=== PATIENT | male | born 1980 | race Caucasian/White ===

== ENCOUNTER 2019-11-02 20:22 | Inpatient (IN) | payer BC, SELFPAY ==
[2019-11-02] VITALS (8 sets, daily range): BP systolic 123–155; BP diastolic 80–99; PULSE 82–96; RESP 14–22; TEMP 36.6–36.9; O2SAT 95–99; BMI 30.2
--- NOTE | ~2019-11-02 | XR_ITS ---
EXAMINATION: XR chest 2V DATE: 11/02/2019 21:43 INDICATION: Chest pain TECHNIQUE: PA and lateral views of the chest are obtained. COMPARISON: 04/03/2005 FINDINGS: The lungs are free of acute opacities. There is no pleural effusion or pneumothorax. The ca rdiomediastinal silhouette is normal. The visualized bones and soft tissues are unremarkable. Contras t from earlier CT scan partially opacifies the urinary tract. IMPRESSION: 1. No acute cardiopulmonary abnormality. Reviewed, dictated and finalized at location A.
--- NOTE | ~2019-11-02 | XR_ITS ---
XR abdomen NG/feed tube insert DATE: 11/03/2019 03:50 INDICATION: NG tube placement TECHNIQUE: Portable AP view on 11/03/2019 at 0350 hours COMPARISON: 11/02/2019 CT abdomen pelvis FINDINGS: An NG tube is present in the proximal stomach, the proximal port extending approximately 8 cm distal to the diaphragmatic hiatus, the tip of the tube overlying the gastric fundus beneath the l eft leaf of the diaphragm. There are numerous gas distended small bowel segments. IMPRESSION: NG tube in proximal stomach Gas distended small bowel segments consistent with partial small bowel obstruction Reviewed, dictated and finalized at Location [facility]. Reviewed, dictated and finalized at location A. IMPRESSION: NG tube in proximal stomach Gas distended small bowel segments consistent with partial small bowel obstruct ion
--- NOTE | ~2019-11-02 | CT_ITS ---
EXAMINATION: CT abdomen pelvis w con DATE: 11/02/2019 21:29 INDICATION: Epigastric abdominal pain. History of pancreatitis. TECHNIQUE: Computed tomography (CT) of the abdomen and pelvis was performed with 100 cc Omnipaque 350 intravenous contrast. Automated exposure control and iterative reconstruction technique were employe d. Exam dose: 734.27 mGy-cm total exam DLP. COMPARISON: 02/25/2006 CT abdomen FINDINGS: Normal heart size. No pericardial or pleural effusion. Lung bases are clear. The liver, gallbladder, bile ducts, pancreas, pancreatic duct, spleen, adrenal glands and kidneys are unremarkable. No urinary tract calculus or hydroureteronephrosis. Normal caliber of the abdominal aorta. No intraperitoneal or retroperitoneal or pelvic mass lesion or adenopathy or ascites. Status post colectomy; history of ulcerative colitis. There is a small bowel anastomosis in the right lower quadrant subtle immediately proximal to the anastomosis is small bowel dilatation up to 3.3 cm diameter and fecal-like contents as well as proximal small bowel air-fluid levels. Bilateral sacroiliitis, which is likely secondary to or associated with the clinical history of ulcer ative colitis. L5 limbus vertebra. There is patchy sclerosis of T8, T9 and T10, possibly related to subacute or old fractures. IMPRESSION: Partial small bowel obstruction at the small bowel anastomosis in the right lower quadra nt Reviewed, dictated and finalized at [facility]. Reviewed, dictated and finalized at location A. IMPRESSION: Partial small bowel obstruction at the small bowel anastomosis in the right lower quadrant
--- NOTE | ~2019-11-02 | XR_ITS ---
XR abdomen obstructive series DATE: 11/03/2019 06:27 INDICATION: Small bowel obstruction TECHNIQUE: Portable supine and upright AP views of the abdomen COMPARISON: 11/02/2019 CT abdomen pelvis FINDINGS: There are mildly dilated gas distended small bowel segments. There is an anastomosis in the right lower quadrant, with suggestion of small bowel obstruction at this site. There is sclerosis at the sacroiliac joints suggesting sacroiliitis associated with known ulcerative colitis. Radiopaque contrast material is noted in the urinary bladder. A nasogastric tube is present in the gastric fundus. IMPRESSION: Partial small bowel obstruction at the anastomosis in the right lower quadrant Bilateral sacral hiatus likely secondary or associated with ulcerative colitis NG tube in gastric fundus Reviewed, dictated and finalized at [facility]. Reviewed, dictated and finalized at location A. IMPRESSION: Partial small bowel obstruction at the anastomosis in the right low er quadrant Bilateral sacral hiatus likely secondary or associated with ulcerative colitis NG tube in gastric fundus
--- NOTE | 2019-11-02 20:30 | ECG_ITS ---
Measurements Intervals Alex Rate: 87 P: 62 VA: 154 QRS: 69 QRSD: 97 T: 25 QT: 336 QTc: 405 Interpretive Statements SINUS RHYTHM POSSIBLE LEFT ATRIAL ENLARGEMENT DELAYED PRECORDIAL R/S TRANSITION ST ELEVATION IN DIFFUSE LEADS- PROBABLY EARLY REPOLARIZATION BORDERLINE ECG Electronically Signed On 11-03-2019 7:10:15 CDT by Ryland Jacobs D.O.
[2019-11-02 20:41] LABS: Basophils Absolute Auto 0.1 K/mm3 (0.0-0.1); Basophils Percent Auto 0.4 % (0.2-1.2); Eosinophils Absolute Auto 0.2 K/mm3 (0-0.3); Eosinophils Percent Auto 1.3 % (0-4.4); Hematocrit 52.4 % (42.0-52.0); Hemoglobin 18.4 g/dL (14.0-18.0); Immature Granulocyte Percent A 0.5 % (0-0.5); Lymphocytes Absolute Auto 2.03 K/mm3 (0.9-3.2); Lymphocytes Percent Auto 10.9 % (18.3-44.2); Mean Corpuscular HGB Conc 35.1 g/dl (32-36); Mean Corpuscular Hemoglobin 32.2 pg (26-34); Mean Corpuscular Volume 91.6 fl (80-100); Mean Platelet Volume 10.4 fl (7.4-10.4); Monocytes Percent Auto 5.3 % (2.6-8.5); Neutrophils Absolute Auto 15.2 K/mm3 (1.3-6.7); Neutrophils Percent Auto 81.6 % (45.5-73.1); Platelet Count Result 311 k/mm3 (150-375); Red Blood Count 5.72 M/mm3 (4.6-6.20); Red Cell Distribution Width 13.2 % (11.5-14.5); White Blood Count 18.6 K/mm3 (4.5-10.0)
--- NOTE | 2019-11-02 20:41 | ED.GENADULT ---
HPI - General Adult General Chief complaint: Chest Pain Stated complaint: stomach pain, chest tightness Time Seen by Provider: 11/02/19 20:34 Source: patient Mode of arrival: ambulatory Limitations: no limitations History of Present Illness HPI narrative: Patient is a 38-year-old male who presents to emergency department for evaluation of abdominal pain that began after eating out today has had several episodes of emesis and dry retching since pain now radiates up into the mid chest. Patient notes that the pain is persisted denies diarrhea notes that he has not had a bowel movement today. Patient took 2 doses of Imodium with no improvement. Patient denies similar occurrence in the past. Patient presents per private vehicle in mild distress Related Data Home Medications Medication Instructions Recorded Confirmed ergocalciferol (vitamin D2) 11/02/19 lisinopril-hydrochlorothiazide tablet 11/02/19 loperamide-simethicone [Imodium tablet 11/02/19 Multi-Symptom Relief] testosterone cypionate mg 11/02/19 Allergies Allergy/AdvReac Type Severity Reaction Status Date / Time No Known Allergies Allergy Mild Verified 11/02/19 20:30 Review of Systems Review of Systems: All systems reviewed & are unremarkable except as noted in HPI and below PMFSH Past Medical History Medical History (Updated 11/02/19 @ 21:53 by Parrish Lara PA-C) Ulcerative colitis Surgical History Surgical History (Updated 11/02/19 @ 20:43 by Parrish Lara PA-C) H/O colectomy Social History Social History (Updated 11/02/19 @ 20:43 by Parrish Lara PA-C) Smoking status: Never smoker Exam Narrative: Exam Narrative: GENERAL: Well-appearing, well-nourished, HEAD: Normocephalic, atraumatic. EYES: PERRLA and EOMI. ENT: Nares clear, no rhinorrhea or epistaxis. Mucous membranes moist. CHEST: Clear to auscultation. No respiratory distress. No wheezes rales or rhonchi HEART: Regular rate and rhythm. No murmur heard. Normal peripheral pulses. ABDOMEN: Firm, generalized tenderness, nondistended EXTREMITIES: Normal range of motion. No edema. SKIN: Warm, dry, no rash. NEURO: No focal deficits. Alert and oriented x3. PSYCH: Normal mood and affect. Course Course Emergency Course: Patient in the room aware of case findings treatment plan and diagnosis agreeing to stay in hospital with NG tube placement Consultations Consultation #1: Patient case discussed will require NG tube placement in hospital pain management fluids hydration reevaluation in the morning Discussed case with gastroenterology who will also consult on patient Date: 11/02/19 Time: 21:52 Vital Signs Vital signs: Vital Signs Temperature 98.4 F 11/02/19 20:25 Pulse Rate 96 11/02/19 20:25 Respiratory Rate 14 11/02/19 20:25 Blood Pressure 155/99 H 11/02/19 20:25 Pulse Oximetry 99 11/02/19 20:25 Temperature 98.4 F 11/02/19 20:25 Pulse Rate 96 11/02/19 20:25 Respiratory Rate 14 11/02/19 20:25 Blood Pressure 155/99 H 11/02/19 20:25 Pulse Oximetry 99 11/02/19 20:25 Medical Decision Making MDM Narrative Medical decision making narrative: Patient hydrated given pain management in the emergency department will be placed in hospital for likely developing small bowel obstruction. Patient with improvement with medications agreeing to plan nontoxic-appearing. Vital Signs Vital Signs: Vital Signs Temperature 98.4 F 11/02/19 20:25 Pulse Rate 96 11/02/19 20:25 Respiratory Rate 14 11/02/19 20:25 Blood Pressure 155/99 H 11/02/19 20:25 Pulse Oximetry 99 11/02/19 20:25 Temperature 98.4 F 11/02/19 20:25 Pulse Rate 96 11/02/19 20:25 Respiratory Rate 14 11/02/19 20:25 Blood Pressure 155/99 H 11/02/19 20:25 Pulse Oximetry 99 11/02/19 20:25 Lab Data Result diagrams: 11/02/19 20:35 11/02/19 20:35 Labs: Lab Results 11/02/19 11/02/19 11/02/19 Range/Units 20:35 20
[2019-11-02 20:50] LABS: Prothrombin Time 12.9 Seconds (11.1-14.7)
[2019-11-02 20:51] LABS: Partial Thromboplastin Time 28.6 SECONDS (22.3-36.8)
[2019-11-02 20:55] LABS: Anion Gap 14.2 mmol/L (7-16); Blood Urea Nitrogen 17 mg/dL (9-20); Calcium 9.9 mg/dL (8.4-10.2); Carbon Dioxide 29 mmol/L (22-30); Chloride 97 mmol/L (98-107); Estimated Glomerular Filt Rate > 60; Glucose 115 mg/dL (75-110); Potassium 4.2 mmol/L (3.4-5.0); Sodium 136 mmol/L (137-145)
[2019-11-02] MEDS: SODIUM CHLORIDE 0.9% IV 1,000 ML 999 ML IV CONT (20:55)
[2019-11-02] MEDS: FAMOTIDINE 20 MG/2 ML VIAL IV PUSH (20:56)
[2019-11-02] MEDS: LIDOCAINE HCL 2% VISC SOLN 15 ML UDC 20 ML PO (20:56)
[2019-11-02] MEDS: ONDANSETRON INJ 4 MG/2 ML VIAL IV PUSH (20:56)
[2019-11-02] MEDS: MAG HYDROX/AL HYDROX/SIMETH 30 ML UDC PO (20:57)
[2019-11-02 21:05] LABS: Alanine Aminotransferase 47 U/L (4-50); Albumin Level 4.8 g/dL (3.5-5.1); Alkaline Phosphatase 69 U/L (38-126); Aspartate Amino Transferase 38 U/L (17-59); Bilirubin,Total 0.9 mg/dL (0.2-1.3); Lipase 29 U/L (23-300)
[2019-11-02 21:07] LABS: Troponin I < 0.012 ng/mL (0.000-0.034)
[2019-11-02 21:31] LABS: Lactic Acid Reflex 1.3 mmol/L (0.7-2.1)
[2019-11-02] MEDS: MORPHINE SULFATE 4 MG/ML INJ IV PUSH (21:43)
[2019-11-03] LABS: Troponin I < 0.012 ng/mL (0.000-0.034)
--- NOTE | 2019-11-03 00:02 | ADMGEN ---
This patient, Enrique Mcintyre, was admitted to 3 [facility] Surg Room 301-01. Patient/family oriented to hospital policies and general routines including ID bracelet, bed and alarms, visiting hours, pain management, procedures, bathroom and other care routines, personal items, smoking policy, room service/diet, and visiting hours. Valuables list has been completed. Information on how to activate the Rapid Response Team has been discussed. Patient/Family are encouraged to report perceived risks to care and to ask questions if they do not understand what they are told or what they should do.
[2019-11-03] MEDS: LACTATED RINGERS 1,000 ML 125 ML IV CONT ×2 (00:10→09:19)
[2019-11-03] MEDS: ONDANSETRON INJ 4 MG/2 ML VIAL IV PUSH ×4 (01:21→13:30)
[2019-11-03] MEDS: MORPHINE SULFATE 4 MG/ML INJ IV PUSH ×4 (01:21→08:10)
[2019-11-03 02:52] LABS: Basophils Absolute Auto 0.1 K/mm3 (0.0-0.1); Basophils Percent Auto 0.5 % (0.2-1.2); Eosinophils Absolute Auto 0.2 K/mm3 (0-0.3); Hemoglobin 17.8 g/dL (14.0-18.0); Immature Granulocyte Absolute 0.11 K/mm3 (0.00-0.031); Immature Granulocyte Percent A 0.6 % (0-0.5); Lymphocytes Absolute Auto 2.88 K/mm3 (0.9-3.2); Lymphocytes Percent Auto 15.8 % (18.3-44.2); Mean Corpuscular HGB Conc 34.9 g/dl (32-36); Mean Corpuscular Volume 91.7 fl (80-100); Mean Platelet Volume 10.3 fl (7.4-10.4); Monocytes Absolute Auto 1.3 K/mm3 (0.1-0.6); Monocytes Percent Auto 7.2 % (2.6-8.5); Neutrophils Absolute Auto 13.6 K/mm3 (1.3-6.7); Neutrophils Percent Auto 74.9 % (45.5-73.1); Platelet Count Result 302 k/mm3 (150-375); Red Blood Count 5.56 M/mm3 (4.6-6.20); Red Cell Distribution Width 13.2 % (11.5-14.5); White Blood Count 18.2 K/mm3 (4.5-10.0)
[2019-11-03 03:12] LABS: Alanine Aminotransferase 41 U/L (4-50); Albumin Level 4.4 g/dL (3.5-5.1); Alkaline Phosphatase 64 U/L (38-126); Anion Gap 15.8 mmol/L (7-16); Aspartate Amino Transferase 33 U/L (17-59); Bilirubin,Total 1.2 mg/dL (0.2-1.3); Blood Urea Nitrogen 15 mg/dL (9-20); Calcium 9.2 mg/dL (8.4-10.2); Carbon Dioxide 23 mmol/L (22-30); Chloride 100 mmol/L (98-107); Estimated CRCL calculation 97 ml/min; Estimated Glomerular Filt Rate > 60; Glucose 126 mg/dL (75-110); Potassium 3.8 mmol/L (3.4-5.0); Sodium 135 mmol/L (137-145)
[2019-11-03 03:23] LABS: Troponin I < 0.012 ng/mL (0.000-0.034)
[2019-11-03 06:00] VITALS: BP 142/88; PULSE 82; RESP 20; TEMP 36.3; O2SAT 97
--- NOTE | 2019-11-03 06:11 | PM.IMHP ---
H&P: HPI History of Present Illness Chief complaint: small bowel obstruction Narrative: date and time of patient contact: 11/02/2019 at 5:20 a.m. Enrique Mcintyre is a 38 year old male with a past medical history of ulcerative colitis status post J-pouch who presented to the ER with abdominal pain. The ER physician documented that the patient's pain started after eating. the patient has stated that he actually had not really eaten. He started having several episodes of emesis and dry heaves. He reported severe abdominal pain that was generalized and worse with palpation of the abdomen. He had never had pain similar to this before. His pain was improved only minimally with morphine. His pain had persisted all day and he presented to the ER around 8:00 a.m. at night. He usually takes 2 or 3 doses of Imodium every day due to chronic diarrhea following his bowel resection. He reports that his stools are frankly watery if he does not take Imodium. Usually with Imodium uses stools and up being mushy. He still usually have a couple of stools a day While taking Imodium. However he has not had a bowel movement since the . he has never had any symptoms similar to this before. The patient had received IV fluids, Pepcid, GI cocktail, and Zofran in the ER. ER physician reported that the patient's symptoms had improved any had no vomiting while down in the ER. He had a CT scan performed which reportedly demonstrated bowel obstruction at prior surgical transition point. Given that the patient was not having any further nausea vomiting or abdominal pain the patient was placed on a clear liquid diet per General surgery. As soon as the patient arrived to the medical floor he began having progressive for return of abdominal pain with recurrent nausea and vomiting. his emesis was of a moderate amount of clear liquid. His pain was unrelieved despite emesis. Nursing staff contacted the surgical service who recommend placement of an NG tube and patient was made NPO. with NG tube placement patient had immediate return of 300 mL of clear liquid. However after that immediate return of fluid the patient again developed vomiting of clear liquid and there was no further output from the NG tube. I was in the patient's room to evaluate the patient and his NG tube was advanced. He still was not having any further NG tube output a stat obstructive serous was ordered and results are pending. The patient was not providing a complete review of systems as he was not wanting to talk due to discomfort from the NG tube. Review of Systems Review of Systems: Narrative: 12 systems were reviewed with pertinent positives and negatives per HPI. Except as documented in the HPI, all other systems were reviewed and are negative. [facility] Past Medical History Medical History (Updated 11/03/19 @ 06:33 by Harriet Hermosillo DO) Essential hypertension Low testosterone in male Pancreatitis Ulcerative colitis Vitamin D deficiency Surgical History Surgical History (Updated 11/03/19 @ 06:33 by Harriet Hermosillo DO) H/O colectomy With ileostomy and subsequent reversal with J pouch History of appendectomy Family History Family History Grandparent Diabetes mellitus Cancer Social History Social History (Updated 11/03/19 @ 06:36 by Harriet Hermosillo DO) Social History: the patient is a lifelong nonsmoker. He works for and [employer] He drinks 2-3 alcoholic beverages 5 to 6 times a week. He denies any illicit substance use. Primary care provider: Dr. Apolinar Villaseñor Smoking status: Never smoker Alcohol intake: current Drinks per week: 5 Substance use: never Substance use type: does not use Gender identity (if verbalized by the patient): Male Sexual Orientation (if Verbalized by the Patient): Straight or Heterosexual Spiritual care concerns: No Meds Home Medicatio
[2019-11-03] MEDS: PANTOPRAZOLE SODIUM IV 40 MG VIAL IV PUSH (08:10)
--- NOTE | 2019-11-03 09:10 | PM.CNGS ---
Assessment and Plan Assessment and plan (1) Small bowel obstruction: Code(s): K56.609 - Unspecified intestinal obstruction, unspecified as to partial versus complete obstruction Status: Acute Assessment and Plan: cont bowel rest, NG decompression, would get SBS for further eval but pt request transfer to [facility] (2) Ulcerative colitis: Code(s): K51.90 - Ulcerative colitis, unspecified, without complications Status: Acute Assessment and Plan: s/p colectomy c J pouch, will need GI consult but again pt requests transfer to [facility] (3) Essential hypertension: Code(s): I10 - Essential (primary) hypertension Status: Acute Assessment and Plan: stable, mgmt per primary History of Present Illness Consult details Consult date: 11/03/19 Reason for consult: abdominal pain Requesting physician: Jocelyn Sharpe PA-C Narrative: Pt is a 38 y/o M c h/o UC s/p colectomy c J pouch (approx 15 yrs ago at [facility]) presenting c a few day h/o worsening crampy abd pain, N/V. Pt reports he has had poor appetite and really not been able to keep much down. Pt denies any previous episodes. Pt reports he follows a GI at [facility] that is extended family and had normal scope about 5 yrs ago. Pt requests transfer to [facility] at this point. Review of Systems Constitutional: Constitutional: Denies chills, Reports fatigue, Reports lethargy and Denies weakness Eyes: Eyes: Reports no additional eye complaints ENT: Reports Normal hearing present and Denies dysphagia Cardiovascular: Cardiovascular: Denies chest pain and Denies palpitations Respiratory: Respiratory: Denies dyspnea Gastrointestinal: Gastrointestinal: Reports abdominal pain, Reports bloating, Reports constipation, Denies diarrhea, Reports nausea, Reports vomiting and Denies hematemesis Genitourinary: Genitourinary: Reports hematuria, Reports dysuria, Reports urinary hesitancy and Reports urinary urgency Musculoskeletal: Musculoskeletal: Reports no additional musculoskeletal complaints Integumentary/Breasts: Skin/Breast: Reports system reviewed and no additional complaints, except as docu Neurologic: Reports system reviewed and no additional complaints, except as documented Psychiatric: Psychiatric: Reports no additional psychiatric complaints PMFSH Past Medical History Medical History Essential hypertension Low testosterone in male Pancreatitis Ulcerative colitis Vitamin D deficiency Surgical History Surgical History H/O colectomy With ileostomy and subsequent reversal with J pouch History of appendectomy Family History Family History Grandparent Diabetes mellitus Cancer Social History Social History Social History: the patient is a lifelong nonsmoker. He works for [employer]. He drinks 2-3 alcoholic beverages 5 to 6 times a week. He denies any illicit substance use. Primary care provider: Dr. Apolinar Villaseñor Smoking status: Never smoker Alcohol intake: current Drinks per week: 5 Substance use: never Substance use type: does not use Gender identity (if verbalized by the patient): Male Sexual Orientation (if Verbalized by the Patient): Straight or Heterosexual Spiritual care concerns: No Meds Home Medications and Allergies Home Medications Medication Instructions Recorded Confirmed Type ergocalciferol (vitamin D2) 50,000 unit PO WEEKLY 11/02/19 11/02/19 History lisinopril-hydrochlorothiazide 1 tablet PO DAILY 11/02/19 11/02/19 History loperamide-simethicone [Imodium 6 tablet PO DAILY 11/02/19 11/02/19 History Multi-Symptom Relief] testosterone cypionate 200 mg IM WEEKLY 11/02/19 11/02/19 History Allergies Allergy/AdvReac Type Severity Reaction Status Date / Time
--- NOTE | 2019-11-03 09:29 | WPDGICN ---
Assessment and Plan Assessment and plan (1) Small bowel obstruction: Code(s): K56.609 - Unspecified intestinal obstruction, unspecified as to partial versus complete obstruction Status: Acute Assessment and Plan: primary team and surgery team already coordinated transfer to [facility], NGT in place continue with supportive care in meantime (2) Ulcerative colitis: Code(s): K51.90 - Ulcerative colitis, unspecified, without complications Status: Acute Assessment and Plan: had colectomy years ago and until now he has been asymptomatic (3) Nausea and vomiting in adult: Code(s): R11.2 - Nausea with vomiting, unspecified Status: Acute GI Consult Note Consult date/time: 11/03/19 09:31 Reason for consult: SBO HPI: Enrique Mcintyre is a 38 year old male with history of UC s/p colectomy with J pouch (approx [address] [facility]) here with new onset of several episodes of emesis and dry heaves, severe generalized abdominal pain for 1 day, never had anything like this before. CT scan showed bowel obstruction at prior surgical transition point. NGT placed with gastric output ~ 300ml and he is going to be transferred to his surgeon at [facility] later today. Review of Systems Constitutional: Constitutional: Denies chills and Denies headache(s) Eyes: Eyes: Denies blurry vision ENT: Reports Normal hearing present, Denies headache(s) and Denies neck pain Cardiovascular: Cardiovascular: Denies chest pain and Denies dyspnea Respiratory: Respiratory: Denies dyspnea Gastrointestinal: Gastrointestinal: Reports no additional gastrointestinal complaints Genitourinary: Genitourinary: Denies dysuria Musculoskeletal: Musculoskeletal: Denies neck pain Integumentary/Breasts: Skin/Breast: Denies dry skin Neurologic: Reports Normal hearing present, Denies headache(s) and Denies weakness Psychiatric: Psychiatric: Denies anxiety Endocrine: Endocrine: Denies change in body appearance Hematologic/Lymphatic: Hematologic/Lymphatic: Denies easy bleeding Allergic/Immunologic: Allergic/Immunologic: Denies urticaria PMFSH Past Medical History Medical History Essential hypertension Low testosterone in male Pancreatitis Ulcerative colitis Vitamin D deficiency Surgical History Surgical History H/O colectomy With ileostomy and subsequent reversal with J pouch History of appendectomy Family History Family History Grandparent Diabetes mellitus Cancer Social History Social History Social History: the patient is a lifelong nonsmoker. He works for and [employer] He drinks 2-3 alcoholic beverages 5 to 6 times a week. He denies any illicit substance use. Primary care provider: Dr. Apolinar Villaseñor Smoking status: Never smoker Alcohol intake: current Drinks per week: 5 Substance use: never Substance use type: does not use Gender identity (if verbalized by the patient): Male Sexual Orientation (if Verbalized by the Patient): Straight or Heterosexual Spiritual care concerns: No Meds Home Medications and Allergies Home Medications Medication Instructions Recorded Confirmed Type ergocalciferol (vitamin D2) 50,000 unit PO WEEKLY 11/02/19 11/02/19 History lisinopril-hydrochlorothiazide 1 tablet PO DAILY 11/02/19 11/02/19 History loperamide-simethicone [Imodium 6 tablet PO DAILY 11/02/19 11/02/19 History Multi-Symptom Relief] testosterone cypionate 200 mg IM WEEKLY 11/02/19 11/02/19 History Allergies Allergy/AdvReac Type Severity Reaction Status Date / Time No Known Allergies Allergy Mild Verified 11/02/19 20:30 Exam Const: General: no acute distress and uncomfortable Other: dry heaving HENMT: Mouth: Yes moist mucous membranes Other:
[2019-11-03] MEDS: PROMETHAZINE HCL 25 MG/ML AMPUL 12.5 MG IV PUSH (09:34)
--- NOTE | 2019-11-03 09:51 | PM.TDS ---
Transfer Discharge Sum: Prov Provider Date of admission: 11/03/19 08:12 Primary care physician: Apolinar VillaseñorMD Admitting clinician: Harriet Hermosillo DO Consults: 11/02/19 22:12 Consult to Physician Routine Comment: Consulting Provider: Evon Echeverria Reason for consultation: surgery Has provider been notified: Yes 11/02/19 22:13 Consult to Physician Routine Comment: Consulting Provider: Darnell Smith Reason for consultation: gi Has provider been notified: Yes DS: Admitting Diagnosis Admitting Diagnosis Admitting Diagnosis: Unspecified intestinal obstruction, unspecified as to partial versus complete obstruction DS: Discharge Diagnosis Discharge Diagnosis (1) Small bowel obstruction: Code(s): K56.609 - Unspecified intestinal obstruction, unspecified as to partial versus complete obstruction Status: Acute Assessment and Plan: Patient has a history of ulcerative colitis status post colectomy and J pouch placement in 2005 at [facility] by Dr. Piper. patient's CT scan was read to me over the phone by Dr. Vieira radiologist who stated that the patient has multiple small bowel air-fluid levels, right lower quadrant anastomosis with fecal like material proximal to the anastomosis site with a chronic partial small bowel obstruction. diameter the bowel was 3.[address] Echeverria surgery evaluated the patient this morning and the patient was requesting to be transferred to [facility] for further evaluation and treatment since status were all of his care has been in the past. Called [place] transfer line and talked to Dr. Moss Fellow for colorectal surgery who accepts the patient in transfer under Dr. Larson. the patient is still having nausea and vomiting and severe pain at this time. NG tube output is around 300 cc of clear fluid. Continue with IV morphine for pain and Zofran and Phenergan p.r.n. for nausea. Continue with patient NPO status and NG tube with suction. Continue IV fluid hydration The patient understands and agrees the plan with transferring to [place] all questions answered. Transfer Discharge Sum: Med Medications Active and Home Medications: Home Medications ergocalciferol (vitamin D2) 50,000 unit PO WEEKLY 11/02/19 [History Confirmed 11/02/19] lisinopril-hydrochlorothiazide 1 tablet PO DAILY 11/02/19 [History Confirmed 11/02/19] loperamide-simethicone [Imodium Multi-Symptom Relief] 6 tablet PO DAILY 11/02/19 [History Confirmed 11/02/19] testosterone cypionate 200 mg IM WEEKLY 11/02/19 [History Confirmed 11/02/19] Active Medications Acetaminophen (Ofirmev 1,000 Mg Ivpb) 1,000 mg in 100 mls @ 400 mls/hr IVPB Q6H PRN PRN Reason: Mild Pain (1-3) or Fever Stop: 11/03/19 22:12 Last Infusion: 11/03/19 06:35 Dose: Infused Documented by: Lactated Ringer's (Lr - Lactated Ringers Iv) 1,000 mls @ 125 mls/hr IV CONT .Q8H DANYELL Last Admin: 11/03/19 09:19 Dose: 125 mls/hr Documented by: Morphine Sulfate (Morphine Sulfate Inj) 4 mg IV PUSH Q2H PRN PRN Reason: Pain Rated 7-10 Last Admin: 11/03/19 08:10 Dose: 4 mg Documented by: Ondansetron HCl (Zofran Inj) 4 mg IV PUSH Q4H PRN PRN Reason: Nausea Last Admin: 11/03/19 09:20 Dose: 4 mg Documented by: Pantoprazole Sodium (Protonix Iv) 40 mg IV PUSH Q12HR DANYELL Last Admin: 11/03/19 08:10 Dose: 40 mg Documented by: Promethazine HCl (Phenergan Inj) 12.5 mg IV PUSH Q4H PRN PRN Reason: Nausea And Vomiting Last Admin: 11/03/19 09:34 Dose: 12.5 mg Documented by: Transfer Discharge Sum: Hosp Hospital Course Hospital course: Enrique Mcintyre is a 38 year old male with history of ulcerative colitis status post J pouch who presented to the emergency room with severe abdominal pain with associated nausea, vomiting after he began eating yesterday. He denies any bowel movements since 8:00 a.m. Dona
== END 2019-11-03 13:46 | disposition short-term general hospital (02) | DRG 389 ==
LOC: ANHED 22:31 → ANH3MEDSUR 22:50
PROVIDERS: Emergency Medicine Emergency Medical Services; Admitting Provider Internal Medicine; Emergency Provider Emergency Medicine; PCP Family Medicine; Visit Provider Family Medicine
DX: K56.609 Unspecified intestinal obstruction, unspecified as to partial versus complete obstruction (principal); E87.1 Hypo-osmolality and hyponatremia; I10 Essential (primary) hypertension; E34.9 Endocrine disorder, unspecified; E55.9 Vitamin D deficiency, unspecified; Z79.899 Other long term (current) drug therapy; Z87.19 Personal history of other diseases of the digestive system; Z90.49 Acquired absence of other specified parts of digestive tract
CPT/HCPCS: 36415; 71046; 74019; 74177; 80048; 80053; 80076; 83605; 83690; 84484; 85025; 85610; 85730; 87040; 93005; 96361; 96365; 96375; 99285; A9270; C9113; J0131; J1170; J2270; J2405; J2550; J7030; J7120; Q9967

== ENCOUNTER 2020-01-21 12:29 | Outpatient (NON) | payer BC, SELFPAY ==
[2020-01-21 22:02] LABS: SARS-CoV-2 RNA PCR Negative
== END 2020-01-21 12:30 ==
PROVIDERS: PCP Family Medicine; Visit Provider Family Medicine
DX: Z20.828 Contact with and (suspected) exposure to other viral communicable diseases (principal); R53.83 Other fatigue
CPT/HCPCS: 87635; C9803; U0003